=== PATIENT | female | born 1995 | race Two or more races ===

== ENCOUNTER 2017-01-08 20:11 | Emergency (ER) | payer OTHER | END 2017-01-08 20:35 | disposition home or self-care (01) | LOC: CFTX 20:11 | DX: S61.011A Laceration without foreign body of right thumb without damage to nail, initial encounter (principal); W45.8XXA Other foreign body or object entering through skin, initial encounter; Y92.009 Unspecified place in unspecified non-institutional (private) residence as the place of occurrence of the external cause | CPT/HCPCS: 12002; 99283 ==

== ENCOUNTER 2017-01-19 15:20 | Emergency (ER) | payer OTHER | END 2017-01-19 16:24 | disposition home or self-care (01) | LOC: CFTX 15:20 → CED 15:20 → CFTX 16:00 | DX: S61.011D Laceration without foreign body of right thumb without damage to nail, subsequent encounter (principal); W25.XXXD Contact with sharp glass, subsequent encounter | CPT/HCPCS: 99281 ==